=== PATIENT | male | born 1960 | race African-American/Black ===

== ENCOUNTER 2017-03-19 18:18 | Inpatient (IN) | payer OTHER ==
[2017-03-19 18:27] VITALS: BMI 21.6
--- NOTE | 2017-03-19 21:42 | HP ---
COWS - Scale Resting Pulse: 1= NM 81-100 Sweatin= No chills or Flushing Restless Observation: 3= Extraneous Movement Pupil Size: 1= Pupils >than Normal Bone or Joint Aches: 4=Acute Joint/Muscle Pain Runny Nose/ Eye Tearin= Runny Nose/Eyes GI Upset > 30mins: 2= Nausea/Diarrhea Tremor Observation: 2= Slight Tremor Visible Yawning Observation: 0= None Anxiety or Irritability: 2=Irritable/Anxious Goose Flesh Skin: 0=Smooth Skin COWS Score: 17 Admission ROS S - HPI Chief Complaint: C/O OPIATE WITHDRAWAL SX'S. SEEKING DETOX TXMENT Allergies/Adverse Reactions: Allergies Allergy/AdvReac Type Severity Reaction Status Date / Time No Known Drug Allergies Allergy Verified 03/19/17 21:19 History of Present Illness: 56 Y.O. MALE WITH OVER 30 YEARS OF SUBSTANCE ABUSE ADMITTED TO DETOX FOR HEROIN DEPENDENCE. SELF REFERRED. DENIES PREVIOUS DETOX/REHAB SERVICES. DENIES ANY SIGNIFICANT PERIOD OF CLEAN TIME. Exam Limitations: No Limitations - Ebola screening Have you traveled outside of the country in the last 21 days: No Have you had contact with anyone from an Ebola affected area: No Have you been sick,other than usual withdrawal symptoms: No Do you have a fever: No - Review of Systems Constitutional: Chills, Malaise, Night Sweats, Changes in sleep EENT: reports: Other (RINORRHEA) Respiratory: reports: Shortness of Breath, Wheezing Cardiac: reports: No Symptoms Reported GI: reports: Diarrhea : reports: No Symptoms Reported Musculoskeletal: reports: No Symptoms Reported Integumentary: reports: No Symptoms Reported Neuro: reports: No Symptoms reported Endocrine: reports: No Symptoms Reported Hematology: reports: No Symptoms Reported Psychiatric: reports: Anxious, Depressed Other Systems: Reviewed and Negative Patient History - Patient Medical History Hx Anemia: No Hx Asthma: Yes (Pt is on albuterol IH) Hx Chronic Obstructive Pulmonary Disease (COPD): No Hx Cancer: No Hx Cardiac Disorders: No Hx Congestive Heart Failure: No Hx Hypertension: No Hx Hypercholesterolemia: No Hx Seizures: No Hx Dementia: No Hx Diabetes: No Hx Gastrointestinal Disorders: No Hx Liver Disease: No Hx Genitourinary Disorders: No Hx Sexually Transmitted Disorders: No Hx Renal Disease (ESRD): No Hx Thyroid Disease: No Hx Human Immunodeficiency Virus (HIV): No Hx Hepatitis C: No Hx Depression: No Hx Suicide Attempt: No Hx Bipolar Disorder: No Hx Schizophrenia: No Other Medical History: FEELS ANXIETY/DEPRESSION. DENIES SI/HI - Patient Surgical History Past Surgical History: No Hx Neurologic Surgery: No Hx Cataract Extraction: No Hx Cardiac Surgery: No Hx Lung Surgery: No Hx Breast Surgery: No Hx Breast Biopsy: No Hx Abdominal Surgery: Yes (R Abdominal Hernia Repair) Hx Appendectomy: No Hx Cholecystectomy: No Hx Genitourinary Surgery: No Hx Section: No Hx Orthopedic Surgery: No Other Surgical History: Appendectomy Anesthesia Reaction: No - PPD History Previous Implant?: Yes Documented Results: Positive w/o proof PPD to be Administered?: No - Smoking Cessation Smoking history: Current some day smoker Have you smoked in the past 12 months: Yes Aproximately how many cigarettes per day: 2 Cigars Per Day: 0 Hx Chewing Tobacco Use: No Initiated information on smoking cessation: No - Substance & Tx. History Hx Alcohol Use: No Hx Substance Use: Yes Substance Use Type: Cocaine, Heroin, Marijuana Hx Substance Use Treatment: No - Substances Abused Heroin Route: Injection Frequency: Daily Amount used: 10 bags Age of first use: 19 Date of Last Use: 03/18/17 Family Disease History - Family Disease History Family History: Denies Admission Physical Exam S - Vital Signs Vital Signs: Vital Signs - 24 hr 03/19/17 18:21 Temperature 97.6 F Pulse Rate 94 H Respiratory 20 Rate Blood Pressure 119/91 - Physical General Appearance: Yes: Appropriately Dressed, Mild Distress, Tremorous HEENTM: Yes: Hearing grossly Normal, Normocephalic, Normal Voice, TATO, Pharynx Normal Respiratory: Yes: Chest Non-Tender, Lungs Clear, Normal Breath Sounds, No Respiratory Distress, No Accessory Muscle Use Breast: Yes: Breast Exam Deferred Cardiology: Yes: Regular Rhythm, Regular Rate, S1, S2 Abdominal: Yes: Normal Bowel Sounds, Non Tender, Soft Genitourinary: Yes: Within Normal Limits Back: Yes: Normal Inspection Extremities: Yes: Normal Capillary Refill, Normal Inspection, Normal Range of Motion Neurological: Yes: yarding engineer II-XII NML intact, Fully Oriented, Alert, Motor Strength 5/5 Integumentary: Yes: Normal Color, Dry, Warm, Erythema - Diagnostic (1) Opioid dependence with withdrawal Current Visit: Yes Status: Chronic (2) Cocaine dependence, uncomplicated Current Visit: Yes Status: Chronic (3) Cannabis dependence, uncomplicated Current Visit: Yes Status: Chronic (4) Asthma Current Visit: Yes Status: Chronic Qualifiers: Asthma severity: mild intermittent (5) PPD positive Current Visit: Yes Status: Acute (6) Nicotine dependence Current Visit: Yes Status: Acute BHS Breath Alcohol Content Breath Alcohol Content: 0 Urine Drug Screen - Results Drug Screen Negative: No Urine Drug Screen Results: THC-Marijuana, AMELIA-Cocaine, OPI-Opiates, MTD- Methadone
[2017-03-19] MEDS ORDERED: ACETAMINOPHEN 325 MG TABLET (FP) PO PRN (21:48)
[2017-03-19] MEDS ORDERED: MAGNESIUM HYDROX 2400MG/30ML ORAL SUSPENSION 30 ML CUP PO PRN (21:48)
[2017-03-19] MEDS ORDERED: P-EPHED 60MG/TRIPROLIDI 2.5MG TABLET PO PRN (21:48)
[2017-03-19] MEDS ORDERED: MAG HYDROX/AL HYDROX/SIMETH 30 ML UNIT-DOSE CUP PO PRN (21:48)
[2017-03-19] MEDS ORDERED: NICOTINE POLACRILEX 4 MG GUM BC PRN (21:48)
[2017-03-19] MEDS ORDERED: guaiFENesin/D-METHORPHAN HB 10 ML UNIT-DOSE CUPS PO PRN (21:48)
[2017-03-19] MEDS ORDERED: MAGNESIUM CITRATE 300 ML BOTTLE PO PRN (21:48)
[2017-03-19] MEDS ORDERED: IBUPROFEN 400 MG TABLET (FP) PO PRN (21:48)
[2017-03-19] MEDS ORDERED: MENTHOL/PHENOL 1 EACH UD MM PRN (21:48)
[2017-03-19] MEDS ORDERED: METHADONE HCL 10 MG TABLET (FOR DETOX USE ONLY) PO ONE ×2 (21:48→23:00)
[2017-03-19] MEDS ORDERED: LOPERAMIDE HCL 2 MG CAPSULE PO PRN (21:48)
[2017-03-19] MEDS ORDERED: ALBUTEROL SO4 2.5/IPRATROPIUM 0.5 INH SOL 3 ML VIAL.NEB. NEB PRN (21:59)
[2017-03-19] MEDS: THIAMINE HCL 100 MG TABLET (FP) PO SCH (22:48)
[2017-03-19] MEDS: diazePAM 5 MG TABLET PO PRN (22:49)
[2017-03-19] MEDS: diphenhydrAMINE HCL 50 MG CAPSULE PO PRN (22:49)
[2017-03-19 23:41] LABS: URINE APPEARANCE CLEAR; URINE BILIRUBIN NEGATIVE (NEGATIVE); URINE BLOOD NEGATIVE (NEGATIVE); URINE COLOR YELLOW; URINE GLUCOSE (UA) NEGATIVE (NEGATIVE); URINE KETONE NEGATIVE (NEGATIVE); URINE LEUK ESTERASE NEGATIVE (NEGATIVE); URINE NITRITE NEGATIVE (NEGATIVE); URINE PROTEIN NEGATIVE (NEGATIVE); URINE UROBILINOGEN NEGATIVE mg/dL (0.2-1.0)
[2017-03-20 09:52] LABS: MCHC 32.6 g/dl (32.0-35.9); MEAN CELL VOLUME 95.1 fl (80-96); MEAN PLT VOLUME 7.4 fl (7.5-11.1); PLATELET COUNT 283 K/MM3 (134-434); RDW 13.7 % (11.9-15.9); WHITE BLOOD COUNT 7.4 K/mm3 (4.0-10.0)
[2017-03-20] MEDS ORDERED: METHADONE HCL 10 MG TABLET (FOR DETOX USE ONLY) PO ONE (10:00)
[2017-03-20] MEDS: PRENATAL VITAMINS W/ FOLIC ACID TABLET (FP) PO SCH (10:02)
--- NOTE | 2017-03-20 10:24 | CONSULT ---
[facility] Psychiatric Consult - Data Date of interview: 03/20/17 Admission source: [facility] Identifying data: This is 56 years old male with no psychiatric hospitalization history iontoxicated with: Opioids, Cocaine, Cannaqbis, Nicotine Substance Abuse History: Urine Drug Screen Results: THC-Marijuana, AMELIA-Cocaine, OPI-Opiates, MTD-Methadone. - Smoking Cessation. Smoking history: Current some day smoker. Have you smoked in the past 12 months: Yes. Aproximately how many cigarettes per day: 2. Cigars Per Day: 0. Hx Chewing Tobacco Use: No. Initiated information on smoking cessation: No. - Substance & Tx. History. Hx Alcohol Use: No. Hx Substance Use: Yes. Substance Use Type: Cocaine, Heroin, Marijuana. Hx Substance Use Treatment: No. - Substances Abused. Heroin. Route: Injection. Frequency: Daily. Amount used: 10 bags. Age of first use: 19. Date of Last Use: 03/18/17 Medical History: Asthma, PPD+ history Psychiatric History: Denies past psychiatric history Physical/Sexual Abuse/Trauma History: Denies Additional Comment: Urine Drug Screen Results: THC-Marijuana, AMELIA-Cocaine, OPI- Opiates, MTD-Methadone. Observation. Detox unit Care Protocol Mental Status Exam - Mental Status Exam Alert and Oriented to: Person Cognitive Function: Fair Patient Appearance: Unkempt Mood: Sad Affect: Flat Patient Behavior: Sedated, Cooperative Voice Loudness: Mildly Soft/Quiet Thought Process: Circumstantial Thought Disorder: Being Controlled Hallucinations: Denies Suicidal Ideation: Denies Homicidal Ideation: Denies Insight/Judgement: Fair Sleep: Difficulty falling asleep Appetite: Fair Muscle strength/Tone: Mild Hypotonicity Gait/Station: Shuffling Additional Comments: Observation. Detox unit Care Protocol Psychiatric Findings - Problem List ([place] 1, 2,3) (1) Nicotine dependence Current Visit: Yes Status: Acute (2) Cannabis dependence, uncomplicated Current Visit: Yes Status: Chronic (3) Cocaine dependence, uncomplicated Current Visit: Yes Status: Chronic (4) Opioid dependence with withdrawal Current Visit: Yes Status: Chronic (5) Drug-induced mood disorder Current Visit: Yes Status: Acute - Initial Treatment Plan Initial Treatment Plan: Observation. Detox unit Care Protocol
[2017-03-20 10:28] LABS: ALBUMIN 3.1 g/dl (3.4-5.0); ALK PHOS 129 U/L (45-117); ANION GAP 8 (8-16); BILIRUBIN,TOTAL 0.2 mg/dL (0.2-1.0); CALCIUM 8.6 mg/dL (8.5-10.1); CO2 32 mmol/L (21-32); GLUCOSE,RANDOM 107 mg/dL (74-106); SGOT/AST 19 U/L (15-37); SGPT/ALT 25 U/L (12-78)
--- NOTE | 2017-03-20 10:31 | PN ---
BHS COWS - Scale Resting Pulse: 1= ND 81-100 Sweatin= Chills/Flushing Restless Observation: 3= Extraneous Movement Pupil Size: 0= Normal to Room Light Bone or Joint Aches: 2= Severe Diffuse Aches Runny Nose/ Eye Tearin= Nasal Congestion GI Upset > 30mins: 1= Stomach Cramp Tremor Observation of Outstretched Hands: 2= Slight Tremor Visible Yawning Observation: 1= 1-2x During Session Anxiety or Irritability: 2=Irritable/Anxious Goose Flesh Skin: 0=Smooth Skin COWS Score: 14 BHS Progress Note (SOAP) Subjective: ANXIETY,SWEATS,FATIGUE. Objective: 03/20/17 10:30 Vital Signs Temperature 98.9 F 03/20/17 09:09 Pulse Rate 91 H 03/20/17 09:09 Respiratory Rate 20 03/20/17 09:09 Blood Pressure 109/68 03/20/17 09:09 O2 Sat by Pulse Oximetry (%) Laboratory Last Values WBC 7.4 K/mm3 (4.0-10.0) 03/20/17 07:00 RBC 4.07 M/mm3 (4.00-5.60) 03/20/17 07:00 Hgb 12.6 GM/dL (11.7-16.9) 03/20/17 07:00 Hct 38.7 % (35.4-49) 03/20/17 07:00 MCV 95.1 fl (80-96) 03/20/17 07:00 MCH 31.0 pg (25.7-33.7) 03/20/17 07:00 MCHC 32.6 g/dl (32.0-35.9) 03/20/17 07:00 RDW 13.7 % (11.9-15.9) 03/20/17 07:00 Plt Count 283 K/MM3 (134-434) 03/20/17 07:00 MPV 7.4 fl (7.5-11.1) L 03/20/17 07:00 Urine Color Yellow 03/19/17 23:00 Urine Appearance Clear 03/19/17 23:00 Urine pH 6.0 (5.0-8.0) 03/19/17 23:00 Ur Specific [place] 1.020 (1.005-1.025) 03/19/17 23:00 Urine Protein Negative (NEGATIVE) 03/19/17 23:00 Urine Glucose (UA) Negative (NEGATIVE) 03/19/17 23:00 Urine Ketones Negative (NEGATIVE) 03/19/17 23:00 Urine Blood Negative (NEGATIVE) 03/19/17 23:00 Urine Nitrite Negative (NEGATIVE) 03/19/17 23:00 Urine Bilirubin Negative (NEGATIVE) 03/19/17 23:00 Urine Urobilinogen Negative mg/dL (0.2-1.0) 03/19/17 23:00 Assessment: 03/20/17 10:30 WITHDRAWAL SX Plan: CONTINUE DETOX
--- NOTE | 2017-03-20 10:44 | EKG ---
Test Reason : Blood Pressure : / mmHG Vent. Rate : 078 BPM Atrial Rate : 078 BPM P-R Int : 154 ms QRS Dur : 088 ms QT Int : 378 ms P-R-T Axes : 077 073 066 degrees QTc Int : 430 ms NORMAL SINUS RHYTHM NORMAL ECG NO PREVIOUS ECGS AVAILABLE Confirmed by ALBINO DUNCAN, NAVNEET ([id number]) on 03/20/2017 10:44:27 AM Referred By: Hong Mohan Confirmed By:NAVNEET POSADA MD
[2017-03-20] MEDS: ALBUTEROL SO4 6.7 GM HFA INHALER IH PRN ×2 (11:27→22:16)
[2017-03-20 12:22] LABS: HIV 1 & 2 AB NEGATIVE; HIV 1 AGp24 NEGATIVE
[2017-03-20] MEDS: diphenhydrAMINE HCL 50 MG CAPSULE PO PRN (22:15)
[2017-03-20] MEDS: THIAMINE HCL 100 MG TABLET (FP) PO SCH (22:15)
[2017-03-20] MEDS: diazePAM 5 MG TABLET PO PRN (22:15)
[2017-03-21] MEDS ORDERED: METHADONE HCL 5 MG TABLET (FOR DETOX USE ONLY) PO ONE (10:00)
[2017-03-21] MEDS: PRENATAL VITAMINS W/ FOLIC ACID TABLET (FP) PO SCH (10:17)
[2017-03-21] MEDS: diazePAM 5 MG TABLET PO PRN ×2 (10:18→22:05)
--- NOTE | 2017-03-21 11:40 | PN ---
S COWS - Scale Resting Pulse: 0= NC 80 or Below Sweatin= Chills/Flushing Restless Observation: 0= Sits Still Pupil Size: 0= Normal to Room Light Bone or Joint Aches: 2= Severe Diffuse Aches Runny Nose/ Eye Tearin= Nasal Congestion GI Upset > 30mins: 1= Stomach Cramp Tremor Observation of Outstretched Hands: 2= Slight Tremor Visible Yawning Observation: 1= 1-2x During Session Anxiety or Irritability: 2=Irritable/Anxious Goose Flesh Skin: 3=Piloerection COWS Score: 13 S Progress Note (SOAP) Subjective: Fatigue, Anxious, Interrupted sleep. Objective: PT. A & O X 3, OBSERVED AMBULATING ON UNIT. NO ACUTE DISTRESS. 03/21/17 11:38 Vital Signs Temperature 98.5 F 03/21/17 09:25 Pulse Rate 74 03/21/17 09:25 Respiratory Rate 18 03/21/17 09:25 Blood Pressure 115/59 03/21/17 09:25 O2 Sat by Pulse Oximetry (%) Laboratory Tests 03/19/17 03/20/17 03/20/17 23:00 07:00 07:00 WBC 7.4 RBC 4.07 Hgb 12.6 Hct 38.7 MCV 95.1 MCH 31.0 MCHC 32.6 RDW 13.7 Plt Count 283 MPV 7.4 L Sodium 143 Potassium 4.4 Chloride 103 Carbon Dioxide 32 Anion Gap 8 BUN 18 Creatinine 1.0 Creat Clearance w eGFR > 60 Random Glucose 107 H Calcium 8.6 Total Bilirubin 0.2 AST 19 ALT 25 Alkaline Phosphatase 129 H Total Protein 7.0 Albumin 3.1 L Urine Color Yellow Urine Appearance Clear Urine pH 6.0 Ur Specific [place] 1.020 Urine Protein Negative Urine Glucose (UA) Negative Urine Ketones Negative Urine Blood Negative Urine Nitrite Negative Urine Bilirubin Negative Urine Urobilinogen Negative RPR Titer Hepatitis C Antibody HIV 1&2 Antibody Screen HIV P24 Antigen 03/20/17 03/20/17 03/20/17 07:00 07:00 07:00 WBC RBC Hgb Hct MCV MCH MCHC RDW Plt Count MPV Sodium Potassium Chloride Carbon Dioxide Anion Gap BUN Creatinine Creat Clearance w eGFR Random Glucose Calcium Total Bilirubin AST ALT Alkaline Phosphatase Total Protein Albumin Urine Color Urine Appearance Urine pH Ur Specific [place] Urine Protein Urine Glucose (UA) Urine Ketones Urine Blood Urine Nitrite Urine Bilirubin Urine Urobilinogen RPR Titer Nonreactive Hepatitis C Antibody >11.0 H HIV 1&2 Antibody Screen Negative HIV P24 Antigen Negative LABS NOTED. RESULT OF HCV AB NOTED. 03/21/17 11:48 Assessment: 03/21/17 11:39 WITHDRAWAL SYMPTOMS. Plan: CONTINUE DETOX.
--- NOTE | 2017-03-21 17:08 | PN ---
[facility] Progress Note Note: Patient made aware of Positive HCV Antibody Result while admitted for Detox. Patient offered opportunity to ask questions about result. Patient advised to follow-up after discharge from Detox at [facility] ([place] [place] Medical / ID clinic for further evaluation. Patient verbalized understanding of recommendations. Copy of HCV Antibody Lab Result given to patient. Hiren Cancino NP
[2017-03-21] MEDS: ALBUTEROL SO4 6.7 GM HFA INHALER IH PRN (20:19)
[2017-03-21] MEDS ORDERED: ALBUTEROL SO4 6.7 GM HFA INHALER IH PRN (20:34)
[2017-03-21] MEDS: diphenhydrAMINE HCL 50 MG CAPSULE PO PRN (22:05)
[2017-03-21] MEDS: THIAMINE HCL 100 MG TABLET (FP) PO SCH (22:05)
[2017-03-22] MEDS: diazePAM 5 MG TABLET PO PRN (05:46)
[2017-03-22] MEDS ORDERED: METHADONE HCL 5 MG TABLET (FOR DETOX USE ONLY) PO ONE (10:00)
[2017-03-22] MEDS: PRENATAL VITAMINS W/ FOLIC ACID TABLET (FP) PO SCH (11:08)
--- NOTE | 2017-03-22 13:52 | PN ---
BHS Progress Note (SOAP) Subjective: Interrupted sleep, Anxious. Objective: PT. A & O X 3, OBSERVED AMBULATING ON UNIT. NO ACUTE DISTRESS. PT. DENIES CHEST PAIN. 03/22/17 13:50 Vital Signs Temperature 97.0 F L 03/22/17 10:45 Pulse Rate 93 H 03/22/17 10:45 Respiratory Rate 18 03/22/17 10:45 Blood Pressure 131/82 03/22/17 10:45 O2 Sat by Pulse Oximetry (%) Laboratory Tests 03/19/17 03/20/17 03/20/17 23:00 07:00 07:00 WBC 7.4 RBC 4.07 Hgb 12.6 Hct 38.7 MCV 95.1 MCH 31.0 MCHC 32.6 RDW 13.7 Plt Count 283 MPV 7.4 L Sodium 143 Potassium 4.4 Chloride 103 Carbon Dioxide 32 Anion Gap 8 BUN 18 Creatinine 1.0 Creat Clearance w eGFR > 60 Random Glucose 107 H Calcium 8.6 Total Bilirubin 0.2 AST 19 ALT 25 Alkaline Phosphatase 129 H Total Protein 7.0 Albumin 3.1 L Urine Color Yellow Urine Appearance Clear Urine pH 6.0 Ur Specific [place] 1.020 Urine Protein Negative Urine Glucose (UA) Negative Urine Ketones Negative Urine Blood Negative Urine Nitrite Negative Urine Bilirubin Negative Urine Urobilinogen Negative RPR Titer Hepatitis C Antibody HIV 1&2 Antibody Screen HIV P24 Antigen 03/20/17 03/20/17 03/20/17 07:00 07:00 07:00 WBC RBC Hgb Hct MCV MCH MCHC RDW Plt Count MPV Sodium Potassium Chloride Carbon Dioxide Anion Gap BUN Creatinine Creat Clearance w eGFR Random Glucose Calcium Total Bilirubin AST ALT Alkaline Phosphatase Total Protein Albumin Urine Color Urine Appearance Urine pH Ur Specific [place] Urine Protein Urine Glucose (UA) Urine Ketones Urine Blood Urine Nitrite Urine Bilirubin Urine Urobilinogen RPR Titer Nonreactive Hepatitis C Antibody >11.0 H HIV 1&2 Antibody Screen Negative HIV P24 Antigen Negative LABS NOTED. Assessment: 03/22/17 13:51 WITHDRAWAL SYMPTOMS. Plan: CONTINUE DETOX.
[2017-03-22] MEDS: THIAMINE HCL 100 MG TABLET (FP) PO SCH (22:18)
[2017-03-23] MEDS ORDERED: METHADONE HCL 10 MG TABLET (FOR DETOX USE ONLY) PO ONE (10:00)
[2017-03-23] MEDS: PRENATAL VITAMINS W/ FOLIC ACID TABLET (FP) PO SCH (11:01)
--- NOTE | 2017-03-23 12:58 | PN ---
BHS Progress Note (SOAP) Subjective: Anxious, nervous, interrupted sleep Objective: 03/23/17 12:57 Last Vital Signs Temp Pulse Resp BP Pulse Ox 97.0 F L 84 18 118/66 03/23/17 09:46 03/23/17 09:46 03/23/17 09:46 03/23/17 09:46 Laboratory Tests 03/19/17 03/20/17 03/20/17 23:00 07:00 07:00 WBC 7.4 RBC 4.07 Hgb 12.6 Hct 38.7 MCV 95.1 MCH 31.0 MCHC 32.6 RDW 13.7 Plt Count 283 MPV 7.4 L Sodium 143 Potassium 4.4 Chloride 103 Carbon Dioxide 32 Anion Gap 8 BUN 18 Creatinine 1.0 Creat Clearance w eGFR > 60 Random Glucose 107 H Calcium 8.6 Total Bilirubin 0.2 AST 19 ALT 25 Alkaline Phosphatase 129 H Total Protein 7.0 Albumin 3.1 L Urine Color Yellow Urine Appearance Clear Urine pH 6.0 Ur Specific [place] 1.020 Urine Protein Negative Urine Glucose (UA) Negative Urine Ketones Negative Urine Blood Negative Urine Nitrite Negative Urine Bilirubin Negative Urine Urobilinogen Negative RPR Titer Hepatitis C Antibody HIV 1&2 Antibody Screen HIV P24 Antigen 03/20/17 03/20/17 03/20/17 07:00 07:00 07:00 WBC RBC Hgb Hct MCV MCH MCHC RDW Plt Count MPV Sodium Potassium Chloride Carbon Dioxide Anion Gap BUN Creatinine Creat Clearance w eGFR Random Glucose Calcium Total Bilirubin AST ALT Alkaline Phosphatase Total Protein Albumin Urine Color Urine Appearance Urine pH Ur Specific [place] Urine Protein Urine Glucose (UA) Urine Ketones Urine Blood Urine Nitrite Urine Bilirubin Urine Urobilinogen RPR Titer Nonreactive Hepatitis C Antibody >11.0 H HIV 1&2 Antibody Screen Negative HIV P24 Antigen Negative Labs noted Assessment: 03/23/17 12:57 Withdrawal symptoms Plan: Continue detox
[2017-03-23] MEDS: diphenhydrAMINE HCL 50 MG CAPSULE PO PRN (21:59)
[2017-03-23] MEDS: THIAMINE HCL 100 MG TABLET (FP) PO SCH (21:59)
[2017-03-24] MEDS ORDERED: METHADONE HCL 5 MG TABLET (FOR DETOX USE ONLY) PO ONE (06:00)
[2017-03-24 06:12] VITALS: BP 131/81; PULSE 79; TEMP 97
--- NOTE | 2017-03-24 10:02 | DS ---
[facility] Detox Discharge Summary Admission Date: 03/19/17 Discharge Date: 03/24/17 - History Present History: Cannabis Dependence, Cocaine Dependence, Opioid Dependence Additional Comments: DETOX COMPLETED. ALERT O X 3. NAD. Pertinent Past History: ASTHMA - Physical Exam Results Vital Signs: Vital Signs Temperature 97.0 F L 03/24/17 06:11 Pulse Rate 79 03/24/17 06:11 Respiratory Rate 18 03/24/17 06:11 Blood Pressure 131/81 03/24/17 06:11 O2 Sat by Pulse Oximetry (%) Pertinent Admission Physical Exam Findings: WITHDRAWAL SX Laboratory Last Values WBC 7.4 K/mm3 (4.0-10.0) 03/20/17 07:00 RBC 4.07 M/mm3 (4.00-5.60) 03/20/17 07:00 Hgb 12.6 GM/dL (11.7-16.9) 03/20/17 07:00 Hct 38.7 % (35.4-49) 03/20/17 07:00 MCV 95.1 fl (80-96) 03/20/17 07:00 MCH 31.0 pg (25.7-33.7) 03/20/17 07:00 MCHC 32.6 g/dl (32.0-35.9) 03/20/17 07:00 RDW 13.7 % (11.9-15.9) 03/20/17 07:00 Plt Count 283 K/MM3 (134-434) 03/20/17 07:00 MPV 7.4 fl (7.5-11.1) L 03/20/17 07:00 Sodium 143 mmol/L (136-145) 03/20/17 07:00 Potassium 4.4 mmol/L (3.5-5.1) 03/20/17 07:00 Chloride 103 mmol/L (98-107) 03/20/17 07:00 Carbon Dioxide 32 mmol/L (21-32) 03/20/17 07:00 Anion Gap 8 (8-16) 03/20/17 07:00 BUN 18 mg/dL (7-18) 03/20/17 07:00 Creatinine 1.0 mg/dL (0.7-1.3) 03/20/17 07:00 Creat Clearance w eGFR > 60 (>60) 03/20/17 07:00 Random Glucose 107 mg/dL (74-106) H 03/20/17 07:00 Calcium 8.6 mg/dL (8.5-10.1) 03/20/17 07:00 Total Bilirubin 0.2 mg/dL (0.2-1.0) 03/20/17 07:00 AST 19 U/L (15-37) 03/20/17 07:00 ALT 25 U/L (12-78) 03/20/17 07:00 Alkaline Phosphatase 129 U/L (45-117) H 03/20/17 07:00 Total Protein 7.0 g/dl (6.4-8.2) 03/20/17 07:00 Albumin 3.1 g/dl (3.4-5.0) L 03/20/17 07:00 Urine Color Yellow 03/19/17 23:00 Urine Appearance Clear 03/19/17 23:00 Urine pH 6.0 (5.0-8.0) 03/19/17 23:00 Ur Specific [place] 1.020 (1.005-1.025) 03/19/17 23:00 Urine Protein Negative (NEGATIVE) 03/19/17 23:00 Urine Glucose (UA) Negative (NEGATIVE) 03/19/17 23:00 Urine Ketones Negative (NEGATIVE) 03/19/17 23:00 Urine Blood Negative (NEGATIVE) 03/19/17 23:00 Urine Nitrite Negative (NEGATIVE) 03/19/17 23:00 Urine Bilirubin Negative (NEGATIVE) 03/19/17 23:00 Urine Urobilinogen Negative mg/dL (0.2-1.0) 03/19/17 23:00 RPR Titer Nonreactive (NONREACTIVE) 03/20/17 07:00 Hepatitis C Antibody >11.0 s/co ratio (0.0-0.9) H 03/20/17 07:00 HIV 1&2 Antibody Screen Negative 03/20/17 07:00 HIV P24 Antigen Negative 03/20/17 07:00 - Treatment Hospital Course: Detox Protocol Followed, Detoxed Safely, Responded well, Discharged Condition Good, Rehab Referral Accepted Patient has Accepted a Rehab Referral to: [facility] - Medication Discharge Medications: Ambulatory Orders Albuterol Sulfate Inhaler - [Ventolin Hfa Inhaler -] 1 - 2 inh PO QID PRN - Diagnosis (1) Nicotine dependence Current Visit: Yes Status: Acute Qualifiers: Nicotine product type: cigarettes Substance use status: in withdrawal Qualified Code(s): F17.213 - Nicotine dependence, cigarettes, with withdrawal; F17.213 - Nicotine dependence, cigarettes, with withdrawal (2) Asthma Current Visit: Yes Status: Chronic Qualifiers: Asthma severity: mild intermittent Asthma complication type: uncomplicated Qualified Code(s): J45.20 - Mild intermittent asthma, uncomplicated; J45.20 - Mild intermittent asthma, uncomplicated; J45.20 - Mild intermittent asthma, uncomplicated (3) Cannabis dependence, uncomplicated Current Visit: Yes Status: Acute (4) Cocaine dependence, uncomplicated Current Visit: Yes Status: Acute (5) Opioid dependence with withdrawal Current Visit: Yes Status: Acute - AMA Did Patient Leave Against Medical Advice: No
[2017-03-24] MEDS: PRENATAL VITAMINS W/ FOLIC ACID TABLET (FP) PO SCH (10:09)
== END 2017-03-24 11:15 | disposition other institution (70) | DRG 773 ==
LOC: YASAS 18:18 → Y3N 21:38
PROVIDERS: ADMIT Internal Medicine; ATTEND Internal Medicine
PROC: HZ2ZZZZ Detoxification Services for Substance Abuse Treatment (ICD-10-PCS; principal; 2017-03-19)
DX: F11.23 Opioid dependence with withdrawal (principal); F14.20 Cocaine dependence, uncomplicated; F12.20 Cannabis dependence, uncomplicated; F17.213 Nicotine dependence, cigarettes, with withdrawal; F19.24 Other psychoactive substance dependence with psychoactive substance-induced mood disorder; J45.20 Mild intermittent asthma, uncomplicated; R76.11 Nonspecific reaction to tuberculin skin test without active tuberculosis
CPT/HCPCS: 36415; 71020-TC; 80053; 81003; 85027; 86593; 86803; 87389; 93005; 93010

== ENCOUNTER 2017-03-24 11:28 | Inpatient (IN) | payer OTHER ==
[2017-03-24 11:46] VITALS: BMI 24.0
--- NOTE | 2017-03-24 12:26 | HP ---
Psychiatrist Admission - Data Date of interview: 03/24/17 Admission source: 3N Identifying data: This is the first [facility] admission for this 56 years old single Black male, father of 2 children, unemployed with no source of income, homeless Medical History: Significant for Asthma, +PPD and history of surgery for abdominal hernia repair and removal of appendix. Smokes 2 cigarettes daily Physical/Sexual Abuse/Trauma History: Denies history of verbal, physical or sexual abuse as DV relatioship. No service Additional Comment: Reports history of multiple arrests including 3 felony convictions. No parole/ probation currently Vital Signs: Vital Signs - 24 hr 03/24/17 11:36 Temperature 97.3 F L Pulse Rate 86 Respiratory 18 Rate Blood Pressure 121/75 Allergies/Adverse Reactions: Allergies Allergy/AdvReac Type Severity Reaction Status Date / Time No Known Drug Allergies Allergy Verified 03/24/17 12:16 Date of last physical exam: 03/19/17 Concur with the findings of this exam: Yes - Substance Abuse/Tx History Hx Alcohol Use: No Hx Substance Use: Yes Substance Use Type: Cocaine (Started using cocaine at age 19, consumes 10 bags daily. Last used on 03/18/17), Heroin (Started using heroin at age 19, consumes 10 bags daily. Last used on 03/18/17) Hx Substance Use Treatment: No Mental Status Exam - Mental Status Exam Alert and Oriented to: Time, Place, Person Cognitive Function: Fair Patient Appearance: Well Groomed Mood: Depressed Affect: Constricted Patient Behavior: Cooperative Speech Pattern: Clear Voice Loudness: Normal Thought Process: Intact, Goal Oriented Thought Disorder: Not Present Hallucinations: Denies Suicidal Ideation: Denies Homicidal Ideation: Denies Insight/Judgement: Fair Sleep: Poorly Appetite: Good Muscle strength/Tone: Normal Gait/Station: Normal Psychiatric Findings - Problem List ([place] 1, 2,3) (1) Opioid dependence Current Visit: Yes Status: Acute (2) Cocaine dependence Current Visit: Yes Status: Acute (3) Nicotine dependence Current Visit: No Status: Acute Qualifiers: Nicotine product type: cigarettes Substance use status: in withdrawal Qualified Code(s): F17.213 - Nicotine dependence, cigarettes, with withdrawal; F17.213 - Nicotine dependence, cigarettes, with withdrawal (4) Substance induced mood disorder Current Visit: Yes Status: Acute (5) Substance-induced sleep disorder Current Visit: Yes Status: Acute (6) PPD positive Current Visit: No Status: Acute (7) Asthma Current Visit: No Status: Chronic Qualifiers: Asthma severity: mild intermittent Asthma complication type: uncomplicated Qualified Code(s): J45.20 - Mild intermittent asthma, uncomplicated; J45.20 - Mild intermittent asthma, uncomplicated; J45.20 - Mild intermittent asthma, uncomplicated - Initial Treatment Plan Initial Treatment Plan: Monitor progress
[2017-03-24] MEDS ORDERED: hydrOXYzine PAMOATE 50 MG CAPSULE (FP) PO PRN (14:10)
[2017-03-24] MEDS ORDERED: MENTHOL/PHENOL 1 EACH UD MM PRN (14:10)
[2017-03-24] MEDS ORDERED: MAGNESIUM CITRATE 300 ML BOTTLE PO PRN (14:10)
[2017-03-24] MEDS ORDERED: MAG HYDROX/AL HYDROX/SIMETH 30 ML UNIT-DOSE CUP PO PRN (14:10)
[2017-03-24] MEDS ORDERED: guaiFENesin/D-METHORPHAN HB 10 ML UNIT-DOSE CUPS PO PRN (14:10)
[2017-03-24] MEDS ORDERED: LOPERAMIDE HCL 2 MG CAPSULE PO PRN (14:10)
[2017-03-24] MEDS ORDERED: diphenhydrAMINE HCL 50 MG CAPSULE PO PRN (14:10)
[2017-03-24] MEDS ORDERED: ACETAMINOPHEN 325 MG TABLET (FP) PO PRN (14:10)
[2017-03-24] MEDS ORDERED: MAGNESIUM HYDROX 2400MG/30ML ORAL SUSPENSION 30 ML CUP PO PRN (14:10)
[2017-03-24] MEDS ORDERED: IBUPROFEN 400 MG TABLET (FP) PO PRN (14:10)
[2017-03-24] MEDS ORDERED: ALBUTEROL SO4 18 GM HFA INHALER IH PRN (14:10)
[2017-03-24] MEDS ORDERED: NICOTINE POLACRILEX 2 MG GUM BUC PRN (14:10)
[2017-03-24] MEDS ORDERED: P-EPHED 60MG/TRIPROLIDI 2.5MG TABLET PO PRN (14:10)
--- NOTE | 2017-03-24 14:10 | HP ---
[facility] Rehab Assess/Revision - Admission History Admitted to Rehab from: [facility] [place] - Vital signs Vital Signs: Vital Signs Period Temp Pulse Resp BP Sys/Martínez Pulse Ox Last 24 Hr 97.3 F 86 18 121/75 - Findings Detox History & Physical reviewed: Yes Concur with findings: Yes Comments/Additional Findings: tested hep c antibody +ve while in detox, will general counselor patient regarding results of blood test and treatment options Inpatient Rehab Admission - Initial Determination Are CD services needed?: Yes Free of communicable disease: Yes Not in need of hospitalization: Yes - Rehab Admission Criteria Comorbidities: Yes Patient is meeting Inpatient Rehab admission criteria:: Yes
[2017-03-24] MEDS ORDERED: THIAMINE HCL 100 MG TABLET (FP) PO SCH (22:00)
[2017-03-25 07:06] VITALS: BP 143/102; PULSE 83; TEMP 98.1
[2017-03-25] MEDS ORDERED: PRENATAL VITAMINS W/ FOLIC ACID TABLET (FP) PO SCH (10:00)
[2017-03-25] MEDS ORDERED: NICOTINE 14 MG/24 HOURS TOPICAL PATCH TD SCH (10:00)
--- NOTE | 2017-03-25 10:22 | PN ---
Psychiatric Progress Note Vital Signs: Vital Signs Period Temp Pulse Resp BP Sys/Martínez Pulse Ox Last 24 Hr 97.3 F-98.1 F 83-86 18-18 121-143/75-102 Date of Session: 03/25/17 Chief Complaint:: AMA Discharge Note HPI: Patient addressing Opoid and Cocaine Dependence comorbid with Nicotine Dependence, Substance-Induced Mood Disorder and Substance-induced Sleep Disorder ROS: Asthma, +PPD were medically managed Current Medications: Active Medications Generic Name Dose Route Start Last Admin Trade Name Freq PRN Reason Stop Dose Admin Acetaminophen 650 mg 03/24/17 14:10 Tylenol - PO Q4H PRN FEVER OR PAIN Al Hydroxide/Mg Hydroxide 30 ml 03/24/17 14:10 Mylanta Oral Suspension - PO Q6H PRN DYSPEPSIA Albuterol Sulfate 2 puff 03/24/17 14:10 Ventolin Hfa Inhaler - IH QID PRN ANXIETY Diphenhydramine HCl 50 mg 03/24/17 14:10 Benadryl - PO HSMR1 PRN FOR ITCHING Eucalyptus/Menthol/Phenol/Sorbitol 1 each 03/24/17 14:10 Cepastat Lozenge - MM Q4H PRN SORE THROAT Guaifenesin 10 ml 03/24/17 14:10 Robitussin Dm - PO Q6H PRN COUGH Hydroxyzine Pamoate 50 mg 03/24/17 14:10 Vistaril - PO Q4H PRN AGITATION Ibuprofen 400 mg 03/24/17 14:10 Motrin - PO Q6H PRN PAIN Loperamide HCl 4 mg 03/24/17 14:10 Imodium - PO Q6H PRN DIARRHEA Magnesium Citrate 300 ml 03/24/17 14:10 Citroma - PO 03/26/17 14:11 Q48H PRN CONSTIPATION Magnesium Hydroxide 30 ml 03/24/17 14:10 Milk Of Magnesia - PO DAILY PRN CONSTIPATION Nicotine 14 mg 03/25/17 10:00 Nicoderm Patch - TD DAILY [place] Nicotine Polacrilex 2 mg 03/24/17 14:10 Nicorette Gum - BUC Q2H PRN NICOTINE REPLACEMENT RX Multivit/Folic Acid/Iron 1 tab 03/25/17 10:00 Vitamins ([facility]) - PO DAILY [place] Pseudoephedrine/Triprolidine 1 combo 03/24/17 14:10 Actifed - PO TID PRN NASAL CONGESTION Thiamine HCl 100 mg 03/24/17 22:00 03/24/17 23:34 Vitamin B1 - PO Not Given HS [place] Current Side Effect: No Lab tests ordered: Yes Lab tests reviewed: Yes Provider note:: Patient is not willing to complete this program. He wants to leave against medical advive saying:" You guys can't help me with finding a job and getting housing". Patient is determined to leave despite encouragement to stay to complete this program. He is stsable for leaving [facility] Total face to face time:: 25 Mental Status Exam - Mental Status Exam Alert and Oriented to: Time, Place, Person Cognitive Function: Fair Patient Appearance: Well Groomed Mood: Hopeful, Euthymic Affect: Appropriate Patient Behavior: Cooperative Speech Pattern: Clear Voice Loudness: Normal Thought Process: Intact, Goal Oriented Thought Disorder: Not Present Hallucinations: Denies Suicidal Ideation: Denies Homicidal Ideation: Denies Insight/Judgement: Poor Sleep: Poorly Appetite: Good Muscle strength/Tone: Normal Gait/Station: Normal Psychiatric Treatment Plan - Problem List (1) Opioid dependence Current Visit: Yes (2) Cocaine dependence Current Visit: Yes (3) Nicotine dependence Current Visit: No Qualifiers: Nicotine product type: cigarettes Substance use status: in withdrawal Qualified Code(s): F17.213 - Nicotine dependence, cigarettes, with withdrawal; F17.213 - Nicotine dependence, cigarettes, with withdrawal (4) Substance induced mood disorder Current Visit: Yes (5) Substance-induced sleep disorder Current Visit: Yes (6) PPD positive Current Visit: No (7) Asthma Current Visit: No Qualifiers: Asthma severity: mild intermittent Asthma complication type: uncomplicated Qualified Code(s): J45.20 - Mild intermittent asthma, uncomplicated; J45.20 - Mild intermittent asthma, uncomplicated; J45.20 - Mild intermittent asthma, uncomplicated Initial treatment plan: Patient is leaving [facility]
== END 2017-03-25 10:35 | disposition left against medical advice (07) | DRG 770 ==
LOC: YASAS 11:28 → Y3W 11:29
PROVIDERS: ADMIT Psychiatry & Neurology Psychiatry; ATTEND Psychiatry & Neurology Psychiatry
PROC: HZ42ZZZ Group Counseling for Substance Abuse Treatment, Cognitive-Behavioral (ICD-10-PCS; principal; 2017-03-24)
DX: F11.20 Opioid dependence, uncomplicated (principal); F14.20 Cocaine dependence, uncomplicated; F17.213 Nicotine dependence, cigarettes, with withdrawal; F19.24 Other psychoactive substance dependence with psychoactive substance-induced mood disorder; F19.282 Other psychoactive substance dependence with psychoactive substance-induced sleep disorder; J45.20 Mild intermittent asthma, uncomplicated; R76.11 Nonspecific reaction to tuberculin skin test without active tuberculosis